=== PATIENT | male | born 1935 | race Caucasian/White ===

== ENCOUNTER 2022-10-10 18:26 | Inpatient (IN) | payer MEDICARE, MEDICAID ==
[~2022-10-10] VITALS: Ht 182.9 cm; Wt 86.1 kg
[~2022-10-10 18:26] MED LIST: ASPI81CH43; SYNTHROID
[2022-10-10 19:06] LABS: Basophils # (auto) 0 10 ^3/uL (0-0.2); Basophils % (auto) 0.4 % (0.0-2.0); Eosinophils # (auto) 0 10 ^3/uL (0-0.8); Eosinophils % (auto) 0.3 % (0.0-7.0); Hematocrit 49.8 % (41.0-53.0); Hemoglobin 16.8 g/dL (13.5-17.5); Lymphocytes # (auto) 0.8 10 ^3/uL (0.4-5.4); Mean Corpuscular Hgb Conc. 33.8 g/dL (32.0-36.0); Mean Corpuscular Volume 91.8 fL (80.0-100.0); Monocytes # (auto) 0.3 10 ^3/uL (0-1.3); Monocytes % (auto) 4.6 % (0.0-12.0); Neutrophils # (auto) 6.2 10 ^3/uL (1.6-8.6); Neutrophils % (auto) 83.7 % (37.0-80.0); Nucleated Red Blood Cells % 0.2 %; Red Blood Cells 5.43 10^6/uL (4.5-5.90); Red Cell Distribution Width 14.2 % (11.8-14.3); White Blood Cell 7.5 10^3/uL (4.4-10.8)
[2022-10-10 19:29] LABS: Albumin 3.5 g/dL (3.4-5.0); Calcium 8.9 mg/dL (8.5-10.1); Potassium 4.5 mmol/L (3.5-5.1)
[2022-10-10 19:33] LABS: Bilirubin, Total 0.9 mg/dL (0.2-1.0)
[2022-10-10] MEDS ORDERED: DexAMETHasone SOD PHOS 10MG/1ML VIAL INJ IV ONE (20:30)
[2022-10-10] MEDS ORDERED: ALBUTEROL SULF 2.5 MG/0.5ML(0.5%) NEB SOLN NEB ONE (20:30)
[2022-10-10] MEDS ORDERED: LACTATED RINGER'S 1,000 ML IV ONE (20:30)
[2022-10-10] MEDS ORDERED: ALBUTEROL MEDNEB 2.5 mg/3ml NEB ONE (20:42)
[2022-10-11] MEDS ORDERED: ONDANSETRON HCL 4 MG/2 ML VIAL IV PRN (00:45)
[2022-10-11] MEDS ORDERED: DOCUSATE SOD 100 MG CAP PO PRN (00:45)
[2022-10-11] MEDS ORDERED: ACETAMINOPHEN 325 MG TAB PO PRN (00:45)
[2022-10-11] MEDS ORDERED: HYDROcodone-ACET 5/325MG TAB PO PRN (00:45)
[2022-10-11 01:00] VITALS: BP 96/68
[2022-10-11] MEDS: SODIUM CHLORIDE 0.9% 1,000 ML IV SCH ×2 (01:12→15:03)
[2022-10-11 07:55] LABS: Basophils # (auto) 0 10 ^3/uL (0-0.2); Basophils % (auto) 0.1 % (0.0-2.0); Eosinophils # (auto) 0 10 ^3/uL (0-0.8); Hematocrit 40.8 % (41.0-53.0); Hemoglobin 14.3 g/dL (13.5-17.5); Lymphocytes # (auto) 0.5 10 ^3/uL (0.4-5.4); Lymphocytes % (auto) 14.3 % (10.0-50.0); Mean Corpuscular Hemoglobin 32.2 pg (28.0-32.0); Mean Corpuscular Volume 91.9 fL (80.0-100.0); Monocytes # (auto) 0 10 ^3/uL (0-1.3); Monocytes % (auto) 1.5 % (0.0-12.0); Neutrophils # (auto) 2.8 10 ^3/uL (1.6-8.6); Neutrophils % (auto) 84.1 % (37.0-80.0); Nucleated Red Blood Cells % 0.2 %; Red Blood Cells 4.43 10^6/uL (4.5-5.90); Red Cell Distribution Width 14.5 % (11.8-14.3); White Blood Cell 3.4 10^3/uL (4.4-10.8)
[2022-10-11 07:58] LABS: BUN/Creatinine Ratio 15.6; Calcium 8.2 mg/dL (8.5-10.1); Potassium 4.5 mmol/L (3.5-5.1)
[2022-10-11] MEDS ORDERED: cefTRIAXone 1GM/50ML D5W 50 ML IV ONE (13:15)
[2022-10-11 15:28] LABS: Urine Specific Gravity 1.019 (1.001-1.035)
[2022-10-11 15:29] LABS: Urine Blood Normal /uL (Negative)
[2022-10-11 15:29] LABS: Magnesium 1.9 mg/dL (1.6-2.6)
[2022-10-11] MEDS: DOXYCYCLINE 100MG/250ML 250 ML IV SCH (16:05)
[2022-10-11 17:03] LABS: Urine Bacteria FEW /hpf (None Seen)
[2022-10-11 18:20] VITALS: BP 130/78
[2022-10-11] MEDS: ALBUTEROL SULF 2.5 MG/0.5ML(0.5%) NEB SOLN NEB PRN ×2 (19:27→21:41)
[2022-10-11 19:44] VITALS: BP 130/78
[2022-10-11 21:37] VITALS: BP 136/75
[2022-10-11] MEDS ORDERED: ALBUTEROL MEDNEB 2.5 mg/3ml NEB ONE (21:41)
[2022-10-11] MEDS: DexAMETHasone INJECTION 10 MG in D5W 5% 50 ML IV SCH (22:10)
[2022-10-12] MEDS: DOXYCYCLINE 100MG/250ML 250 ML IV SCH ×2 (02:07→12:35)
[2022-10-12 05:00] VITALS: BP 126/91
[2022-10-12] MEDS: SODIUM CHLORIDE 0.9% 1,000 ML IV SCH ×2 (05:21→08:51)
[2022-10-12 07:40] VITALS: BP 125/64
[2022-10-12] MEDS: cefTRIAXone 1GM/50ML D5W 50 ML IV SCH (08:50)
[2022-10-12] MEDS: VENLAFAXINE HCL 37.5MG TABLET PO SCH ×2 (10:30→21:55)
[2022-10-12 10:46] VITALS: BP 158/65
[2022-10-12 12:15] VITALS: BP 142/95
[2022-10-12 16:57] VITALS: BP 132/70
[2022-10-12] MEDS: ATORVASTATIN 20 MG TAB PO SCH (21:55)
[2022-10-12] MEDS: DexAMETHasone INJECTION 10 MG in D5W 5% 50 ML IV SCH (21:55)
[2022-10-12 22:00] VITALS: BP 134/74
[2022-10-13] MEDS: DOXYCYCLINE 100MG/250ML 250 ML IV SCH ×2 (01:15→14:54)
[2022-10-13 05:00] VITALS: BP 135/73
[2022-10-13] MEDS: SODIUM CHLORIDE 0.9% 1,000 ML IV SCH (05:46)
[2022-10-13] MEDS: LEVOTHYROXINE SODIUM 112 MCG TAB PO SCH (07:14)
[2022-10-13 08:00] VITALS: BP 109/56
[2022-10-13 09:00] VITALS: BP 109/56
[2022-10-13] MEDS: cefTRIAXone 1GM/50ML D5W 50 ML IV SCH (10:35)
[2022-10-13] MEDS: VENLAFAXINE HCL 37.5MG TABLET PO SCH ×2 (10:36→22:47)
[2022-10-13] MEDS: ASPirin 81 mg TAB PO SCH (10:36)
[2022-10-13] MEDS: MEMANTINE HCL 5 MG TAB PO SCH (10:36)
[2022-10-13 11:40] VITALS: BP 140/75
[2022-10-13 16:58] VITALS: BP 145/99
[2022-10-13 22:00] VITALS: BP 97/73
[2022-10-13] MEDS: DexAMETHasone INJECTION 10 MG in D5W 5% 50 ML IV SCH (22:47)
[2022-10-13] MEDS: ATORVASTATIN 20 MG TAB PO SCH (22:47)
[2022-10-14] MEDS: SODIUM CHLORIDE 0.9% 1,000 ML IV SCH ×2 (00:44→14:35)
[2022-10-14 01:19] VITALS: BP 97/73
[2022-10-14] MEDS: DOXYCYCLINE 100MG/250ML 250 ML IV SCH ×2 (02:50→14:35)
[2022-10-14 05:00] VITALS: BP 118/63
[2022-10-14] MEDS: LEVOTHYROXINE SODIUM 112 MCG TAB PO SCH (06:30)
[2022-10-14] MEDS: VENLAFAXINE HCL 37.5MG TABLET PO SCH ×2 (08:34→23:14)
[2022-10-14] MEDS: MEMANTINE HCL 5 MG TAB PO SCH (08:35)
[2022-10-14] MEDS: cefTRIAXone 1GM/50ML D5W 50 ML IV SCH (08:36)
[2022-10-14] MEDS: ASPirin 81 mg TAB PO SCH (08:36)
[2022-10-14 09:00] VITALS: BP 141/68
[2022-10-14 13:00] VITALS: BP 126/94
[2022-10-14 16:38] VITALS: BP 169/73
[2022-10-14 22:00] VITALS: BP 140/71
[2022-10-14] MEDS: DexAMETHasone INJECTION 10 MG in D5W 5% 50 ML IV SCH (23:14)
[2022-10-14] MEDS: ATORVASTATIN 20 MG TAB PO SCH (23:15)
[2022-10-15] MEDS: DOXYCYCLINE 100MG/250ML 250 ML IV SCH ×2 (00:31→13:15)
[2022-10-15] MEDS: SODIUM CHLORIDE 0.9% 1,000 ML IV SCH (04:51)
[2022-10-15 05:00] VITALS: BP 110/61
[2022-10-15] MEDS: LEVOTHYROXINE SODIUM 112 MCG TAB PO SCH (06:26)
[2022-10-15 09:00] VITALS: BP 149/74
[2022-10-15 09:05] VITALS: BP 134/71
[2022-10-15] MEDS: MEMANTINE HCL 5 MG TAB PO SCH (10:25)
[2022-10-15] MEDS: VENLAFAXINE HCL 37.5MG TABLET PO SCH (10:25)
[2022-10-15] MEDS: ASPirin 81 mg TAB PO SCH (10:25)
[2022-10-15] MEDS: cefTRIAXone 1GM/50ML D5W 50 ML IV SCH (10:26)
[2022-10-15 12:47] VITALS: BP 149/74
[2022-10-15 13:00] VITALS: BP 127/52
== END 2022-10-15 14:14 | disposition home or self-care (01) | DRG 193 ==
LOC: ER 18:28 → TELE 10-11 00:45 → TELE-CENTR 10-11 18:12
PROVIDERS: ADMIT Hospitalist; ATTEND Family Medicine
DX: J18.9 Pneumonia, unspecified organism (principal); J96.01 Acute respiratory failure with hypoxia; J44.1 Chronic obstructive pulmonary disease with (acute) exacerbation; I47.1 Supraventricular tachycardia; N39.0 Urinary tract infection, site not specified; N17.9 Acute kidney failure, unspecified; E07.9 Disorder of thyroid, unspecified; E78.5 Hyperlipidemia, unspecified; I44.0 Atrioventricular block, first degree; R00.1 Bradycardia, unspecified; Z20.822 Contact with and (suspected) exposure to COVID-19; F03.90 Unspecified dementia, unspecified severity, without behavioral disturbance, psychotic disturbance, mood disturbance, and anxiety; Z87.891 Personal history of nicotine dependence; Z71.6 Tobacco abuse counseling
CPT/HCPCS: 36415; 71045; 71275; 80048; 80053; 80061; 81003; 81015; 83036; 83735; 83880; 84443; 84484; 85025; 85379; 87086; 87088; 87426; 87804; 93005; 93017; 93306; 93970; 94640; 96361; 96365; 96367; 96375; G0378; J0696; J1100; J3490; J7060